=== PATIENT | female | born 1970 | race Caucasian/White ===

== ENCOUNTER 2017-11-24 09:24 | Day surgery (SDC) | payer OTHER ==
[2017-11-23 15:23] VITALS: BMI 44.6
[2017-11-24 12:11] VITALS: TEMP 98.2
[2017-11-24 12:17] VITALS: PULSE 57
[2017-11-24 12:41] VITALS: BP 114/70
--- NOTE | 2017-11-25 19:17 | PATH ---
Surgical Pathology Report Patient Name: EKTA CHAN [facility]. Rec. #: [id number] /Age/Gender: 1970 (Age: 47) / F Account: [id number] Location: [facility]-ENDOSCOPY Taken: 11/24/2017 Received: 11/24/2017 Reported: 11/25/2017 Physicians: Anuj Mann M.D. Specimen(s) Received A: BX 2ND PORTION DUODENUM AND BULB B: BX ANTRUM AND BODY Clinical History Anemia, obesity Postoperative diagnosis: Normal EGD Final Diagnosis A. DUODENUM, SECOND PORTION AND BULB, BIOPSY: DUODENAL MUCOSA WITHOUT SIGNIFICANT PATHOLOGIC FINDINGS. B. STOMACH, ANTRUM AND BODY, BIOPSY: GASTRIC ANTRAL AND BODY MUCOSA WITH MILD CHRONIC GASTRITIS. IMMUNOHISTOCHEMICAL STAIN FOR H. PYLORI IS NEGATIVE. Electronically Signed Ritu Burton M.D. Gross Description A. Received in formalin, labeled "second portion duodenum and bulb" are 5 villeda, irregular portions of soft tissue measuring 0.1-0.2 cm. in greatest dimension. The specimens are submitted in toto in one cassette. B. Received in formalin, labeled "antrum and body" are 4 villeda, irregular portions of soft tissue measuring 0.1 and 0.2 cm. in greatest dimension. The specimens are submitted in toto in one cassette. MLMoreliaZ/11/24/2017 beto/11/24/2017
== END 2017-11-24 13:00 | disposition home or self-care (01) ==
LOC: JASU-ENDO 09:24
PROVIDERS: ATTEND Internal Medicine Gastroenterology
PROC: 0DB68ZX Excision of Stomach, Via Natural or Artificial Opening Endoscopic, Diagnostic (ICD-10-PCS; 2017-11-24)
PROC: 0DB98ZX Excision of Duodenum, Via Natural or Artificial Opening Endoscopic, Diagnostic (ICD-10-PCS; principal; 2017-11-24 10:45)
DX: D50.9 Iron deficiency anemia, unspecified (principal); K29.50 Unspecified chronic gastritis without bleeding
CPT/HCPCS: 84703; 88305-TC; 88342-TC

== ENCOUNTER 2018-04-22 05:59 | Day surgery (SDC) | payer OTHER ==
[2018-04-22] MEDS ORDERED: FERRIC CARBOXYMALTOSE 750 MG in SODIUM CHLORIDE 250 ML IVPB ONE (15:45)
[2018-04-22] MEDS ORDERED: ACETAMINOPHEN 325 MG TABLET (FP) PO ONE (15:45)
[2018-04-22] MEDS ORDERED: CYANOCOBALAMIN (VITAMIN B-12) 1000 MCG/1 ML VIAL IM ONE (18:34)
--- NOTE | 2018-04-22 18:49 | HP ---
Satellite [facility] - Chief Complaint Chief Complaint: Here for elective injectafer infusion. Has fatigue History Source: Patient Limitations to Obtaining History: No Limitations - Past Medical History Allergies/Adverse Reactions: Allergies Allergy/AdvReac Type Severity Reaction Status Date / Time No Known Allergies Allergy Verified 09/17/15 16:32 ...LMP: 11/22/17 - Current Medications Current Medications: Home Medications Medication Instructions Recorded Nebivolol [Bystolic -] 10 mg PO DAILY 09/17/15 Aspirin Coated [Ecotrin -] 81 mg PO PRN 11/24/17 Satellite Physical Exam - Physical Examination Lung: Clear to auscultation Heart: Regular rate & rhythm Abdomen: Soft Extremities: No edema Neurological: Intact Satellite Impression/Plan - Impression/Plan Impression: Iron deficiency anemia. Injectafer infusion. B12 deficiency -- vitamin B12 injections, monthly. 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
[2018-04-22 19:07] VITALS: BP 134/85; PULSE 76; TEMP 97.9
== END 2018-04-22 19:11 | disposition home or self-care (01) ==
LOC: JONCNONCHE 05:59 → J7W 15:34 → JONCNONCHE 19:11
PROVIDERS: ATTEND Internal Medicine Hematology & Oncology
PROC: 3E033GC Introduction of Other Therapeutic Substance into Peripheral Vein, Percutaneous Approach (ICD-10-PCS; principal; 2018-04-22)
DX: D50.9 Iron deficiency anemia, unspecified (principal)
CPT/HCPCS: 96365; 96372; J1439

== ENCOUNTER 2018-04-29 07:15 | Day surgery (SDC) | payer OTHER ==
[2018-04-29] MEDS ORDERED: FERRIC CARBOXYMALTOSE 750 MG in SODIUM CHLORIDE 250 ML IVPB ONE (09:00)
[2018-04-29] MEDS ORDERED: ACETAMINOPHEN 325 MG TABLET (FP) PO ONE ×2 (15:15→16:45)
[2018-04-29] MEDS ORDERED: CYANOCOBALAMIN (VITAMIN B-12) 1000 MCG/1 ML VIAL IM ONE (17:15)
[2018-04-29 17:51] VITALS: TEMP 98.2
[2018-04-29 18:20] VITALS: BP 139/77; PULSE 75
== END 2018-04-29 18:20 | disposition home or self-care (01) ==
LOC: JONCNONCHE 07:15 → JONCCHEMO 07:15 → J7W 16:36 → JONCNONCHE 18:20
PROVIDERS: ATTEND Internal Medicine Hematology & Oncology
PROC: 3E033GC Introduction of Other Therapeutic Substance into Peripheral Vein, Percutaneous Approach (ICD-10-PCS; principal; 2018-04-29)
DX: D50.9 Iron deficiency anemia, unspecified (principal)
CPT/HCPCS: 96365; 96372; J1439

== ENCOUNTER 2020-05-18 07:07 | Day surgery (SDC) | payer OTHER ==
[2020-05-14 16:29] VITALS: BMI 48.2
[~2020-05-18 07:07] MED LIST: BUPIVACAINE HCL/PF 0.25% (2.5MG/ML) 10 ML VIAL IJ ONE
[2020-05-18] MEDS ORDERED: PROMETHAZINE HCL 25 MG/1 ML VIAL IVPUSH PRN (07:39)
[2020-05-18] MEDS ORDERED: ONDANSETRON 4 MG/2 ML VIAL IVPUSH PRN (07:39)
[2020-05-18] MEDS ORDERED: oxyCODONE HCL 5 MG TABLET PO PRN (07:39)
[2020-05-18] MEDS ORDERED: LACTATED RINGERS SOLUTION 1,000 ML IV SCH (07:45)
[2020-05-18] MEDS ORDERED: PROPOFOL 20 ML ONE (08:51)
[2020-05-18] MEDS ORDERED: MIDAZOLAM HCL 2 MG/2 ML SINGLE DOSE VIAL ONE (08:51)
[2020-05-18] MEDS ORDERED: LIDOCAINE HCL/PF 2% SDV 5ML VIAL ONE (08:52)
[2020-05-18] MEDS ORDERED: GLYCOPYRROLATE 0.2 MG/1 ML VIAL ONE (08:53)
[2020-05-18] MEDS ORDERED: ceFAZolin SODIUM 1 GM VIAL ONE (08:53)
[2020-05-18] MEDS ORDERED: DEXAMETHASONE SOD PHOSPHATE 4 MG/1 ML VIAL ONE (08:53)
[2020-05-18] MEDS ORDERED: KETOROLAC TROMETHAMINE 30 MG/1 ML VIAL ONE ×2 (08:53→09:19)
[2020-05-18] MEDS ORDERED: ONDANSETRON 4 MG/2 ML VIAL ONE ×2 (08:53→10:07)
[2020-05-18] MEDS ORDERED: BUPIVACAINE HCL/PF 2.5 MG/ML - 30 ML VIAL IJ ONE (08:53)
[2020-05-18] MEDS ORDERED: BUPIVACAINE HCL/PF 0.25% (2.5MG/ML) 10 ML VIAL IJ ONE (09:52)
[2020-05-18] MEDS ORDERED: oxyCODONE HCL 5 MG TABLET ONE (11:21)
[2020-05-18 12:09] VITALS: BP 121/79; PULSE 72; TEMP 98
== END 2020-05-18 12:30 | disposition home or self-care (01) ==
LOC: FASU 07:07
PROVIDERS: ATTEND Orthopaedic Surgery
PROC: 0SBD4ZZ Excision of Left Knee Joint, Percutaneous Endoscopic Approach (ICD-10-PCS; 2020-05-18)
PROC: 0SBD4ZZ Excision of Left Knee Joint, Percutaneous Endoscopic Approach (ICD-10-PCS; principal; 2020-05-18 09:30)
DX: S83.242A Other tear of medial meniscus, current injury, left knee, initial encounter (principal); S83.282A Other tear of lateral meniscus, current injury, left knee, initial encounter; S83.8X2A Sprain of other specified parts of left knee, initial encounter; M65.862 Other synovitis and tenosynovitis, left lower leg; X58.XXXA Exposure to other specified factors, initial encounter; Y93.9 Activity, unspecified; Y92.9 Unspecified place or not applicable
CPT/HCPCS: 84703; 88304-TC; 94760

== ENCOUNTER 2020-06-12 04:30 | Day surgery (SDC) | payer OTHER ==
[2020-06-08 16:19] VITALS: BMI 44.6
[2020-06-12] MEDS ORDERED: IBUPROFEN 800 MG/8 ML IJ IVPB PRN (10:46)
[2020-06-12] MEDS ORDERED: IBUPROFEN 600 MG TABLET (FP) PO PRN (10:46)
[2020-06-12] MEDS ORDERED: oxyCODONE HCL 5 MG TABLET PO PRN (10:46)
[2020-06-12] MEDS ORDERED: ONDANSETRON 4 MG/2 ML VIAL IVPUSH PRN ×2 (10:46→12:14)
[2020-06-12] MEDS ORDERED: ELECTROLYTE-148 SOLN 1,000 ML IV SCH (11:00)
[2020-06-12] MEDS ORDERED: MIDAZOLAM HCL 2 MG/2 ML SINGLE DOSE VIAL ONE (11:12)
[2020-06-12] MEDS ORDERED: DESFLURANE GAS 240 ML BOTTLE IH ONE (11:29)
[2020-06-12] MEDS ORDERED: GLYCOPYRROLATE 0.2 MG/1 ML VIAL ONE (11:38)
[2020-06-12] MEDS ORDERED: ACETAMINOPHEN 500 MG TABLET (FP) PO PRN (12:14)
[2020-06-12 15:42] VITALS: BP 120/74; PULSE 70; TEMP 97
== END 2020-06-12 15:00 | disposition home or self-care (01) ==
LOC: JASU-SURG 04:30
PROVIDERS: ATTEND Obstetrics & Gynecology
PROC: 0UJD8ZZ Inspection of Uterus and Cervix, Via Natural or Artificial Opening Endoscopic (ICD-10-PCS; 2020-06-12)
PROC: 0UB97ZX Excision of Uterus, Via Natural or Artificial Opening, Diagnostic (ICD-10-PCS; principal; 2020-06-12 13:30)
PROC: 0UDB7ZX Extraction of Endometrium, Via Natural or Artificial Opening, Diagnostic (ICD-10-PCS; 2020-06-12 13:30)
DX: N92.0 Excessive and frequent menstruation with regular cycle (principal); N84.0 Polyp of corpus uteri; E66.01 Morbid (severe) obesity due to excess calories
CPT/HCPCS: 76856-TC; 81025; 88305-TC; 94760

== ENCOUNTER 2020-09-13 07:49 | Day surgery (SDC) | payer OTHER ==
[2020-09-13 09:47] LABS: HEMATOCRIT 34.9 % (32.4-45.2); HEMOGLOBIN 11.4 GM/dL (10.7-15.3); MCH 26.1 pg (25.7-33.7); MCHC 32.6 g/dl (32.0-36.0); MEAN CELL VOLUME 80.1 fl (80-96); MEAN PLT VOLUME 7.9 fl (7.5-11.1); PLATELET COUNT 379 10^3/uL (134-434); RBC 4.35 M/mm3 (3.60-5.2); RDW 14.9 % (11.6-15.6); WHITE BLOOD COUNT 7.6 K/mm3 (4.0-10.0)
[2020-09-13 10:15] LABS: ALBUMIN 3.4 g/dl (3.4-5.0); BLOOD UREA NITROGEN 8.8 mg/dL (7-18); CALCIUM 9.2 mg/dL (8.5-10.1)
[2020-09-13 10:18] LABS: CREATININE 0.7 mg/dL (0.55-1.3)
[2020-09-13 10:21] LABS: BILIRUBIN,TOTAL 0.3 mg/dL (0.2-1); TOT PROT 7.2 g/dl (6.4-8.2)
[2020-09-13] MEDS ORDERED: FERRIC CARBOXYMALTOSE 750 MG in SODIUM CHLORIDE 250 ML IVPB ONE (16:00)
[2020-09-13 18:35] VITALS: TEMP 97.9
[2020-09-13] MEDS ORDERED: CYANOCOBALAMIN (VITAMIN B-12) 1000 MCG/1 ML VIAL IM ONE (18:40)
[2020-09-13 19:01] VITALS: BP 124/77; PULSE 66
== END 2020-09-13 19:02 | disposition home or self-care (01) ==
LOC: JONCNONCHE 07:49
PROVIDERS: ATTEND Internal Medicine Hematology & Oncology
PROC: 3E033GC Introduction of Other Therapeutic Substance into Peripheral Vein, Percutaneous Approach (ICD-10-PCS; principal; 2020-09-13)
DX: D50.9 Iron deficiency anemia, unspecified (principal)
CPT/HCPCS: 36415; 80053; 82607; 82728; 82746; 82747; 83540; 83550; 83615; 84439; 84443; 85014; 85027; 96365; J1439

== ENCOUNTER 2020-09-20 07:17 | Day surgery (SDC) | payer OTHER ==
[2020-09-20] MEDS ORDERED: FERRIC CARBOXYMALTOSE 750 MG in SODIUM CHLORIDE 250 ML IVPB ONE (15:49)
[2020-09-20] MEDS ORDERED: CYANOCOBALAMIN (VITAMIN B-12) 1000 MCG/1 ML VIAL IM ONE (15:50)
[2020-09-20 18:42] VITALS: TEMP 97.6
[2020-09-20 19:09] VITALS: BP 135/78; PULSE 66
== END 2020-09-20 19:17 | disposition home or self-care (01) ==
LOC: JONCNONCHE 07:17
PROVIDERS: ATTEND Internal Medicine Hematology & Oncology
PROC: 3E033GC Introduction of Other Therapeutic Substance into Peripheral Vein, Percutaneous Approach (ICD-10-PCS; principal; 2020-09-20)
DX: D50.9 Iron deficiency anemia, unspecified (principal)
CPT/HCPCS: 96365; J1439